=== PATIENT | female | born 1965 | race African-American/Black ===

== ENCOUNTER 2020-06-08 14:46 | Outpatient (CLI) | payer BC, SELFPAY ==
--- NOTE | ~2020-06-08 | MM_ITS ---
EXAMINATION: MM screening fernando BI w sarahy HISTORY: Screening mammogram TECHNIQUE: Craniocaudal and mediolateral oblique 3-D tomosynthesis images were obtained and synthetic 2-D images were generated. CAD analysis was submitted and interpreted. COMPARISON: 08/02/2014 bilateral digital screening mammogram BREAST PARENCHYMAL COMPOSITION: There are scattered areas of fibroglandular density. FINDINGS: Occasional benign calcifications are noted bilaterally. There is no evidence of suspicious mass, calcification, or architectural distortion to suggest malignancy in either breast. There has be en no suspicious interval change. IMPRESSION: 1. No mammographic evidence of malignancy. 2. Recommend routine screening mammography in one year. BI-RADS Category 2: Benign finding(s). Reviewed, dictated and finalized at location A.
== END 2020-06-08 14:47 | disposition home or self-care (01) ==
LOC: ANHIMG 14:48
PROVIDERS: PCP Internal Medicine; Visit Provider Internal Medicine
DX: Z12.31 Encounter for screening mammogram for malignant neoplasm of breast (principal)
CPT/HCPCS: 77063; 77067

== ENCOUNTER 2021-07-17 00:40 | Day surgery (SDC) | payer BC, SELFPAY ==
[2021-07-03 09:08] VITALS: BMI 38.1
[2021-07-17 11:27] VITALS: BP 177/99; PULSE 81; RESP 16; TEMP 36.6; O2SAT 98
[2021-07-17] MEDS: LACTATED RINGERS 1,000 ML 150 ML IV CONT (11:32)
--- NOTE | 2021-07-17 11:49 | WPDANESEPPF ---
Anes - Initial Pre Proc Eval Procedure: Operation Date: 07/17/21 12:30 Proposed Procedures p Screening Colonoscopy - Jayy Liriano MD Date/Time: 07/17/21 11:49 Surgeon: Jayy Liriano MD Pre Op Diagnosis: neoplasm screening Patient Data Age: 56 Gender: F Height: 1.68 m Weight: 102.1 kg Last Vital Signs Temp 36.6 C 07/17/21 11:27 Pulse 81 07/17/21 11:27 Resp 16 07/17/21 11:27 BP 177/99 H 07/17/21 11:27 Pulse Ox 98 07/17/21 11:27 Allergies Allergy/AdvReac Type Severity Reaction Status Date / Time No Known Allergies Allergy Verified 07/17/21 11:25 Home Medications Medication Instructions Recorded Confirmed Type meloxicam 15 mg tablet 15 mg PO DAILY #30 tablet 09/26/20 07/17/21 Rx losartan 50 mg tablet 50 mg PO DAILY #90 tablet 06/26/21 07/17/21 Rx tramadol 50 mg tablet 50 mg PO Q6H PRN #120 tablet 06/26/21 07/17/21 Rx triamcinolone acetonide 1 applic TOPICAL BID PRN 07/03/21 07/17/21 History Patient hx anesthesia problems: none Family hx anesthesia problems: none Results Review: All pre-operative results and documents have been reviewed as part of the pre-operative evaluation. [facility]LY [facility] Past Medical History Medical History Benign essential hypertension Flexural eczema Hyperlipidemia LDL goal <130 Osteoarthritis of both knees Osteoarthritis of hands, bilateral Surgical History Surgical History History of hysterectomy Family History Family History Mother Family history of congestive heart failure Family history of heart disease in male family member before age 55 Social History Social History Smoking status: Never smoker Second hand tobacco smoke exposure: No Alcohol intake: current Alcohol use details: rare occasional, every few months Substance use: never Substance use type: does not use Living arrangements: with family Spiritual care concerns: No Anes - Eval Final PreProcedure Day of Procedure 07/17/21 11:49 Patient weight: obese Heart: regular rate and rhythm Lungs: clear to auscultation Airway: Mallampati scale class III Neurological: alert and oriented Last oral intake: >/= 8 hours ASA classification: III Emergent: no Anesthetic plan: proceed Anesthesia type and monitoring: general GIVS and standard monitoring Results Review: All pre-operative results and documents have been reviewed as part of the pre-operative evaluation. Informed Consent: The patient's anesthetic plan and its attendant risks and benefits were discussed with the patient/family/POA. Questions were solicited and answers provided to the satisfaction of the patient/family/POA.
--- NOTE | 2021-07-17 12:00 | PM.HPGS ---
History of Present Illness History of Present Illness Consent: Risks, benefits, and alternatives have been discussed and questions answered. Patient agrees to proceed with procedure. Chief complaint: neoplasm screening Narrative: Yanet Travis is a 56 year old female here for screening colonoscopy, last one about 11 years ago. Review of Systems Constitutional: Constitutional: Denies headache(s) and Denies weakness Eyes: Eyes: Denies blurry vision ENT: Reports Normal hearing present, Denies headache(s) and Denies neck pain Cardiovascular: Cardiovascular: Denies chest pain and Denies dyspnea Respiratory: Respiratory: Denies dyspnea Gastrointestinal: Gastrointestinal: Reports no additional gastrointestinal complaints Genitourinary: Genitourinary: Denies dysuria Musculoskeletal: Musculoskeletal: Denies neck pain Integumentary/Breasts: Skin/Breast: Denies dry skin Neurologic: Reports Normal hearing present, Denies headache(s) and Denies weakness Psychiatric: Psychiatric: Denies anxiety Endocrine: Endocrine: Denies change in body appearance Hematologic/Lymphatic: Hematologic/Lymphatic: Denies easy bleeding Allergic/Immunologic: Allergic/Immunologic: Denies urticaria PMFSH Past Medical History Medical History (Updated 07/17/21 @ 12:01 by Jayy Liriano MD) Benign essential hypertension Colon cancer screening Flexural eczema Hyperlipidemia LDL goal <130 Osteoarthritis of both knees Osteoarthritis of hands, bilateral Surgical History Surgical History History of hysterectomy Family History Family History Mother Family history of congestive heart failure Family history of heart disease in male family member before age 55 Social History Social History Smoking status: Never smoker Second hand tobacco smoke exposure: No Alcohol intake: current Alcohol use details: rare occasional, every few months Substance use: never Substance use type: does not use Living arrangements: with family Spiritual care concerns: No Meds Home Medications and Allergies Home Medications Medication Instructions Recorded Confirmed Type meloxicam 15 mg tablet 15 mg PO DAILY #30 tablet 09/26/20 07/17/21 Rx losartan 50 mg tablet 50 mg PO DAILY #90 tablet 06/26/21 07/17/21 Rx tramadol 50 mg tablet 50 mg PO Q6H PRN #120 tablet 06/26/21 07/17/21 Rx triamcinolone acetonide 1 applic TOPICAL BID PRN 07/03/21 07/17/21 History Allergies Allergy/AdvReac Type Severity Reaction Status Date / Time No Known Allergies Allergy Verified 07/17/21 11:25 Vital Signs Vital Signs - 24 hr 07/17/21 11:27 Temperature 97.8 F Pulse Rate 81 Respiratory Rate 16 Blood Pressure 177/99 H Pulse Oximetry 98 Exam Const: General: comfortable and no acute distress HENMT: General nose exam: Normal nares present Eyes: General: appearance normal, both eyes and all related structures Neck: Neck: no JVD Resp: Auscultation: clear to auscultation bilaterally Cardio: Rate: regular rate Rhythm: regular rhythm GI: Inspection: non-distended GI Palp: Yes Soft to palpation Skin: General skin exam: normal color Neuro: General: gait normal Speech: normal speech Extrem: General: normal to inspection Psych: Mental Status: mental status grossly normal Assessment and Plan Assessment and plan (1) Colon cancer screening: Code(s): Z12.11 - Encounter for screening for malignant neoplasm of colon Status: Acute Assessment and Plan: colonoscopy
[2021-07-17 12:15] VITALS: BP 134/63; PULSE 65; RESP 21; O2SAT 98
[2021-07-17 12:25] VITALS: BP 128/85; PULSE 69; RESP 20; O2SAT 100
[2021-07-17 12:35] VITALS: BP 144/80; PULSE 63; RESP 20; O2SAT 100
== END 2021-07-17 12:55 | disposition home or self-care (01) ==
PROVIDERS: PCP Internal Medicine; Visit Provider Internal Medicine Gastroenterology
PROC: 0DJD8ZZ Inspection of Lower Intestinal Tract, Via Natural or Artificial Opening Endoscopic (ICD-10-PCS; CPT 45378; principal; 2021-07-17 12:30)
DX: Z12.11 Encounter for screening for malignant neoplasm of colon (principal); K57.30 Diverticulosis of large intestine without perforation or abscess without bleeding; K64.8 Other hemorrhoids; I10 Essential (primary) hypertension; L20.82 Flexural eczema; E78.5 Hyperlipidemia, unspecified; M19.90 Unspecified osteoarthritis, unspecified site; E66.9 Obesity, unspecified; Z68.36 Body mass index [BMI] 36.0-36.9, adult
CPT/HCPCS: 45378; J2704; J7120

== ENCOUNTER 2023-02-25 08:06 | Outpatient (CLI) | payer BC, SELFPAY ==
--- NOTE | ~2023-02-25 | MM_ITS ---
EXAMINATION: MM screening fernando BI w sarahy HISTORY: Screening mammogram TECHNIQUE: Craniocaudal and mediolateral oblique 3-D tomosynthesis images were obtained and synthetic 2-D images were generated. Bilateral rotated lateral CC views. CAD analysis was submitted and interp reted. COMPARISON: 06/08/2020, 08/02/2014 bilateral screening mammogram examinations BREAST PARENCHYMAL COMPOSITION: There are scattered areas of fibroglandular density. FINDINGS: There is no evidence of suspicious mass, calcification, or architectural distortion to sugg est malignancy in either breast. There has been no suspicious interval change. IMPRESSION: 1. No mammographic evidence of malignancy. 2. Recommend routine screening mammography in one year. BI-RADS Category 1: Negative Reviewed, dictated and finalized at location A.
== END 2023-02-25 08:07 | disposition home or self-care (01) ==
LOC: ANHIMG 08:09
PROVIDERS: PCP Family Medicine; Visit Provider Family Medicine
DX: Z12.31 Encounter for screening mammogram for malignant neoplasm of breast (principal)
CPT/HCPCS: 77063; 77067

== ENCOUNTER 2023-11-25 10:56 | Outpatient (CLI) | payer BC, SELFPAY ==
[2023-11-25 19:56] LABS: Alanine Aminotransferase 51 U/L (6-35); Albumin Level 3.8 g/dL (3.5-5.1); Alkaline Phosphatase 109 U/L (38-126); Anion Gap 3 mmol/L (8-16); Aspartate Amino Transferase 70 U/L (14-36); Bilirubin,Total 0.7 mg/dL (0.2-1.3); Blood Urea Nitrogen 16 mg/dL (7-17); Calcium 9.5 mg/dL (8.4-10.2); Carbon Dioxide 26 mmol/L (22-30); Chloride 111 mmol/L (98-107); Cholesterol 134 mg/dL (0-200); Estimated Glomerular Filt Rate > 60; Glucose 106 mg/dL (65-110); HDL Direct 40 mg/dL; Potassium 4.2 mmol/L (3.4-5.0); Sodium 140 mmol/L (137-145); Triglycerides 60 mg/dL (<150)
[2023-11-25 20:07] LABS: LDL Cholesterol Direct 76 mg/dL
[2023-11-25 20:12] LABS: Hemoglobin A1C 5.8 % (<5.7)
== END 2023-11-25 10:57 | disposition home or self-care (01) ==
LOC: ANHGOSHLAB 10:57
PROVIDERS: PCP Family Medicine; Visit Provider Family Medicine
DX: R73.03 Prediabetes (principal); Z13.220 Encounter for screening for lipoid disorders; Z13.228 Encounter for screening for other metabolic disorders
CPT/HCPCS: 36415; 80053; 80061; 83036

== ENCOUNTER 2024-07-22 14:41 | Outpatient (CLI) | payer OTHER, SELFPAY ==
--- NOTE | ~2024-07-22 | US_ITS ---
EXAMINATION: US thyroid DATE: 07/22/2024 15:00 INDICATION: Thyrotoxicosis, unspecified without thyrotoxic crisis. TECHNIQUE: Multiple ultrasound images of the thyroid were obtained. COMPARISON: None. FINDINGS: The right thyroid lobe measures 5.5 x 2.0 x 1.7 cm. The left thyroid lobe measures 5.4 x 2.2 x 1.7 c m. The thyroid demonstrates mildly heterogeneous echogenicity. Vascularity is normal. No discrete no dule. There is a 2.9 x 1.6 x 2.4 cm left submandibular mass. IMPRESSION: 1. 2.9 x 1.6 x 2.4 cm left submandibular mass. The differential diagnosis includes enlarged submandib ular lymph node suspicious for metastatic disease and submandibular gland mass such as benign mixed t umor, Warthin tumor, or primary malignancy. Neck CT with contrast is recommended. Reviewed, dictated and finalized at location A. HASING COORDINATOR IMPRESSION: 1. 2.9 x 1.6 x 2.4 cm left submandibular mass. The differential diagnosis inclu darvin enlarged submandibular lymph node suspicious for metastatic disease and sub mandibular gland mass such as benign mixed tumor, Warthin tumor, or primary mal ignancy. Neck CT with contrast is recommended.
== END 2024-07-22 14:42 | disposition home or self-care (01) ==
LOC: MICIMG 14:42
PROVIDERS: PCP Family Medicine; Visit Provider Family Medicine
DX: E05.90 Thyrotoxicosis, unspecified without thyrotoxic crisis or storm (principal); R59.0 Localized enlarged lymph nodes; R22.0 Localized swelling, mass and lump, head
CPT/HCPCS: 76536

== ENCOUNTER 2024-07-28 09:10 | Outpatient (CLI) | payer OTHER, SELFPAY ==
--- NOTE | ~2024-07-28 | CT_ITS ---
EXAMINATION: CT soft tissue neck w con DATE: 07/28/2024 09:41 INDICATION: Other diseases of salivary glands. TECHNIQUE: Computed tomography (CT) of the neck was performed with 75 mL Omnipaque-350 intravenous co ntrast. Automated exposure control and iterative reconstruction technique were employed. The dose-nadir gth product was 390.49 mGy-cm. COMPARISON: Thyroid ultrasound 07/22/24 FINDINGS: There is mild scarring at the lung apices. There is a 2.4 x 1.7 cm left submandibular node. The submandibular glands are normal. There is minimal mucosal thickening in the paranasal sinuses. T he mastoid air cells are normal. The orbits are normal. There is mild cervical spondylosis. IMPRESSION: 1. Enlarged left submandibular node suspicious for lymphoma or metastatic squamous cell carcinoma. Ul trasound-guided core needle biopsy is recommended. Reviewed, dictated and finalized at location A. VISION HOST IMPRESSION: 1. Enlarged left submandibular node suspicious for lymphoma or metastatic squam ous cell carcinoma. Ultrasound-guided core needle biopsy is recommended.
[2024-07-28 09:26] LABS: Estimated Glomerular Filt Rate > 60
== END 2024-07-28 09:11 | disposition home or self-care (01) ==
LOC: MICIMG 09:11
PROVIDERS: PCP Family Medicine; Visit Provider Family Medicine
DX: R22.0 Localized swelling, mass and lump, head (principal); K11.8 Other diseases of salivary glands
CPT/HCPCS: 70491; Q9967

== ENCOUNTER 2024-08-17 09:27 | Outpatient (CLI) | payer OTHER, SELFPAY ==
--- NOTE | ~2024-08-17 | US_ITS ---
EXAMINATION: US biopsy lymph node DATE: 08/17/2024 10:31 INDICATION: Left submandibular lymphadenopathy. TECHNIQUE: The procedure including the risks, benefits, and alternatives was discussed with the patie nt. Risks discussed included bleeding and infection. The patient understood the risks and agreed to p roceed. The skin overlying the neck was prepped and draped in usual sterile fashion. Anesthetic was administered with 1% lidocaine subcutaneously. An 18 gauge core biopsy needle was then used to obtai n 6 core biopsy specimens under continuous sonographic guidance. The entry site was cleaned and dress ed. There were no immediate complications. FINDINGS: Ultrasound images demonstrate the needle in a 2.9 x 1.5 cm left submandibular lymph node. IMPRESSION: 1. Ultrasound-guided core needle biopsy of an enlarged left submandibular lymph node. Reviewed, dictated and finalized at location A. TENANCE SCHEDULER
== END 2024-08-17 09:28 | disposition home or self-care (01) ==
PROVIDERS: PCP Family Medicine; Visit Provider Family Medicine
DX: R59.0 Localized enlarged lymph nodes (principal)
CPT/HCPCS: 38505; 76942; 88184; 88305

== ENCOUNTER 2024-12-22 15:07 | Outpatient (CLI) | payer OTHER, SELFPAY ==
--- NOTE | ~2024-12-22 | MM_ITS ---
EXAMINATION: MM screening fernando BI w sarahy HISTORY: Screening TECHNIQUE: Craniocaudal and mediolateral oblique 3-D tomosynthesis images were obtained and synthetic 2-D images were generated. CAD analysis was submitted and interpreted. COMPARISON: Comparison to multiple prior studies sequentially, with oldest reviewed study dated 06/08. BREAST PARENCHYMAL COMPOSITION: Dense: The breasts are heterogeneously dense, which may obscure small masses FINDINGS: There is no evidence of suspicious mass, calcification, or architectural distortion to sugg est malignancy in either breast. There has been no suspicious interval change. IMPRESSION: 1. No mammographic evidence of malignancy. 2. Recommend routine screening mammography in one year. BI-RADS Category 1: Negative Reviewed, dictated and finalized at location A.
== END 2024-12-22 15:08 | disposition home or self-care (01) ==
LOC: ANHIMG 15:14
PROVIDERS: PCP Student in an Organized Health Care Education/Training Program; Visit Provider Student in an Organized Health Care Education/Training Program
DX: Z12.31 Encounter for screening mammogram for malignant neoplasm of breast (principal)
CPT/HCPCS: 77063; 77067